=== PATIENT | male | born 1950 | race Caucasian/White ===

== ENCOUNTER → 2016-11-13 | Outpatient (CLI) | payer OTHER | LOC: CIMAGING 08:24 | PROVIDERS: ATTEND Internal Medicine | DX: Z13.89 Encounter for screening for other disorder (principal); I70.0 Atherosclerosis of aorta; Z82.49 Family history of ischemic heart disease and other diseases of the circulatory system ==

== ENCOUNTER 2017-07-27 15:39 | Emergency (ER) | payer OTHER ==
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
[2017-07-27 15:55] VITALS: BP 123/90; PULSE 72; RESP 18; TEMP 98.4; O2SAT 94
== END 2017-07-27 16:26 | disposition home or self-care (01) ==
LOC: CED 15:39
DX: H53.8 Other visual disturbances (principal)

== ENCOUNTER → 2017-10-19 | Outpatient (CLI) | payer OTHER | LOC: CLAB 10:58 | PROVIDERS: ATTEND Internal Medicine | DX: M47.892 Other spondylosis, cervical region (principal) | CPT/HCPCS: 72040-PO ==